=== PATIENT | male | born 1990 | race African-American/Black ===

== ENCOUNTER 2019-07-24 09:25 | Emergency (ER) | payer SELFPAY ==
[~2019-07-24] VITALS: Ht 180.3 cm; Wt 84.0 kg
[2019-07-24] MEDS ORDERED: KETOROLAC 60MG/2ML VIAL IM STA (09:50)
[2019-07-24 11:57] VITALS: BP 130/88
== END 2019-07-24 11:58 | disposition home or self-care (01) ==
LOC: ER 09:25
DX: S62.306A Unspecified fracture of fifth metacarpal bone, right hand, initial encounter for closed fracture (principal); S62.304A Unspecified fracture of fourth metacarpal bone, right hand, initial encounter for closed fracture; M25.571 Pain in right ankle and joints of right foot; F12.10 Cannabis abuse, uncomplicated; F31.9 Bipolar disorder, unspecified; F20.9 Schizophrenia, unspecified; F17.210 Nicotine dependence, cigarettes, uncomplicated; Y08.89XA Assault by other specified means, initial encounter; Y93.89 Activity, other specified; Y92.89 Other specified places as the place of occurrence of the external cause; Y99.8 Other external cause status
CPT/HCPCS: 29125; 73130; 96372; 99283; J1885